=== PATIENT | female | born 1990 | race Caucasian/White ===

== ENCOUNTER 2019-05-24 13:54 | Outpatient (CLI) | payer OTHER | END 2019-05-24 14:12 | disposition home or self-care (01) | LOC: LAB 13:54 | DX: J11.1 Influenza due to unidentified influenza virus with other respiratory manifestations (principal); R53.81 Other malaise; R51 Headache ==

== ENCOUNTER 2020-02-16 08:29 | Outpatient (CLI) | payer OTHER | END 2020-02-16 09:09 | disposition home or self-care (01) | LOC: LAB 08:29 | PROVIDERS: ATTEND General Practice | DX: Z11.3 Encounter for screening for infections with a predominantly sexual mode of transmission (principal); Z13.6 Encounter for screening for cardiovascular disorders; Z00.8 Encounter for other general examination; R22.1 Localized swelling, mass and lump, neck; L04.0 Acute lymphadenitis of face, head and neck; R43.8 Other disturbances of smell and taste; R11.2 Nausea with vomiting, unspecified; R51 Headache; Z11.4 Encounter for screening for human immunodeficiency virus [HIV] ==

== ENCOUNTER 2020-02-16 14:25 | Outpatient (CLI) | payer OTHER | END 2020-02-16 14:40 | disposition home or self-care (01) | LOC: RAD 14:25 | PROVIDERS: ATTEND General Practice | DX: R51 Headache (principal); R11.2 Nausea with vomiting, unspecified; R43.8 Other disturbances of smell and taste; R22.1 Localized swelling, mass and lump, neck; L04.0 Acute lymphadenitis of face, head and neck ==

== ENCOUNTER 2020-03-01 13:10 | Outpatient (CLI) | payer OTHER | END 2020-03-01 13:17 | disposition home or self-care (01) | LOC: SONOGRAMA 13:10 | PROVIDERS: ATTEND Pathology Anatomic Pathology & Clinical Pathology | DX: L04.0 Acute lymphadenitis of face, head and neck (principal) ==